=== PATIENT | female | born 1945 ===

== ENCOUNTER 2017-12-06 20:36 | Emergency (ER) | payer BC ==
--- NOTE | 2017-12-06 21:05 | UC ---
Lower Extremity/Ankle HPI - HPI Summary HPI Summary: Pt presents with left lower leg pain and swelling that began 3-4 days ago and seems to be getting progressively worse. She tells me that she traveled via plane from [place] 1 week ago. Has a hx of varicose veins to b/l legs, HTN, DM2 , and RA. Denies fever, chills, SOB, chest pain. - History of Current Complaint Chief Complaint: UCLowerExtremity Stated Complaint: (L) LEG - ITCHY/SWELLING Time Seen by Provider: 12/06/17 21:05 Hx Obtained From: Patient Onset/Duration: Gradual Onset Severity Initially: Mild Severity Currently: Mild Pain Intensity: 2 Pain Scale Used: 0-10 Numeric Aggravating Factor(s): Standing, Ambulation Alleviating Factor(s): Rest Able to Bear Weight: Yes - Allergies/Home Medications Allergies/Adverse Reactions: Allergies Allergy/AdvReac Type Severity Reaction Status Date / Time No Known Allergies Allergy Verified 12/06/17 21:01 Home Medications: Home Medications Albuterol HFA INHALER* [Ventolin HFA Inhaler*] 2 puff INH Q4H PRN 12/06/17 [ History Confirmed 12/06/17] Aspirin-Nuprin 75 mg EVERY OTHER DAY 12/06/17 [History Confirmed 12/06/17] Colecalciferol-Desunin 800 i.u. DAILY 12/06/17 [History Confirmed 12/06/17] Folic Acid TAB* [Folvite TAB*] 5 mg PO DAILY 12/06/17 [History Confirmed ] Lisinopril TAB* [Prinivil TAB*] 20 mg PO BID 12/06/17 [History Confirmed ] Methotrexate TAB* 4 mg PO WEEKLY 12/06/17 [History Confirmed 12/06/17] Mometasone/Formoter 100/5 MDI* [Dulera 100/5 MDI*] 1 inh DAILY 12/06/17 [ History Confirmed 12/06/17] dilTIAZem HCl [Diltiazem 24Hr Cd] 180 mg PO BID 12/06/17 [History Confirmed ] metFORMIN* [Glucophage 850 MG TAB *] 850 mg PO BID 12/06/17 [History Confirmed 12/06/17] PMH/Surg Hx/FS Hx/Imm Hx - Additional Past Medical History Additional PMH: Rheumatoid arthritis Endocrine History: Diabetes Cardiovascular History: Hypertension - Surgical History Surgical History: Yes Surgery Procedure, Year, and Place: right leg/metal plate. . parathyroid - Family History Known Family History: Positive: Unknown - Social History Occupation: Retired Lives: With Family Alcohol Use: None Substance Use Type: None Smoking Status (MU): Former Smoker When Did the Patient Quit Smoking/Using Tobacco: 40 years ago Review of Systems Constitutional: Negative Skin: Other - Left lower leg edema and pain Respiratory: Negative Cardiovascular: Negative Neurovascular: Negative Neurological: Negative Psychological: Negative All Other Systems Reviewed And Are Negative: Yes Physical Exam - Summary Physical Exam Summary: GENERAL: NAD. WDWN. No pain distress. SKIN: Right lower leg 33.5cm @ 10cm below tibial tuberosity 33.5cm...@ 20cm below 23.0cm. Left lower leg @ 10cm below tibial tuberosity 33.5cm...@ 20cm below 24.0cm. Moderate pain in left calf. No erythema or ecchymosis. Diffuse varicose veins on b/l legs. NECK: Supple. Nontender. No lymphadenopathy. CHEST: CTAB. No r/r/w. No accessory muscle use. Breathing comfortably and in no distress. CV: RRR. Without m/r/g. Pulses intact popliteal, PT, and DP. Brisk cap refill. NEURO: Alert. Sensations intact and symmetric B/L LEs PSYCH: Age appropriate behavior. Triage Information Reviewed: Yes Vital Signs: Initial Vital Signs Temp 98.7 F 12/06/17 20:55 Pulse 76 12/06/17 20:55 Resp 20 12/06/17 20:55 BP 143/59 12/06/17 20:55 Pulse Ox 99 12/06/17 20:55 Lower Extremity Course/Dx - Course Course Of Treatment: History and exam today is suspicious for a DVT. I have advised her to seek further evaluation in the [facility]. She was agreeable to this plan and will have her friend drive her. Report called to Doris whitehead RN in [facility]. - Differential Dx/Diagnosis Provider Diagnoses: Left calf pain and swelling Discharge - Sign-Out/Discharge Documenting (check all that apply): Discharge/Admit/Transfer - Discharge Plan Condition: Stable Disposition: TRANS HIGHER L OF CARE FAC Referrals: No Primary Care Phys,NOPCP [Primary Care Provider] - Additional Instructions: Your symptoms are concerning for a blood clot in your leg - please go to the [facility] for further evaluation - Billing Disposition and Condition Condition: STABLE Disposition: EMTALA
== END 2017-12-06 21:33 | disposition short-term general hospital (02) ==
LOC: UCCORT 20:36
DX: M79.662 Pain in left lower leg (principal); M79.89 Other specified soft tissue disorders
CPT/HCPCS: 99202; G0463